=== PATIENT | female | born 1960 | race Caucasian/White ===

== ENCOUNTER 2019-12-22 09:52 | Outpatient (CLI) | payer OTHER, SELFPAY ==
[2019-12-22 11:02] LABS: Vitamin D 25 Hydroxy 61.5 ng/mL
== END 2019-12-22 09:53 | disposition home or self-care (01) ==
PROVIDERS: Visit Provider Obstetrics & Gynecology Gynecology
DX: E55.9 Vitamin D deficiency, unspecified (principal)
CPT/HCPCS: 36415; 82306

== ENCOUNTER 2021-12-28 09:33 | Outpatient (CLI) | payer OTHER, SELFPAY ==
[2021-12-28 10:49] LABS: Vitamin D 25 Hydroxy 71.1 ng/mL
== END 2021-12-28 09:34 | disposition home or self-care (01) ==
LOC: ANHLAB 09:35
PROVIDERS: Visit Provider Nurse Practitioner
DX: E55.9 Vitamin D deficiency, unspecified (principal)
CPT/HCPCS: 36415; 82306

== ENCOUNTER 2022-08-15 08:39 | Outpatient (CLI) | payer OTHER, SELFPAY ==
[2022-08-15 10:21] LABS: Vitamin D 25 Hydroxy 50.6 ng/mL
== END 2022-08-15 08:40 | disposition home or self-care (01) ==
PROVIDERS: Visit Provider Obstetrics & Gynecology Gynecology
DX: E55.9 Vitamin D deficiency, unspecified (principal)
CPT/HCPCS: 36415; 82306

== ENCOUNTER 2023-09-06 09:26 | Outpatient (CLI) | payer OTHER, SELFPAY ==
[2023-09-10 21:08] LABS: Vitamin D 25 Hydroxy 45 ng/mL (30-100)
== END 2023-09-06 09:27 | disposition home or self-care (01) ==
PROVIDERS: Visit Provider Nurse Practitioner
DX: E55.9 Vitamin D deficiency, unspecified (principal)
CPT/HCPCS: 36415; 82306

== ENCOUNTER 2024-09-08 11:29 | Outpatient (CLI) | payer OTHER, SELFPAY ==
--- OUTSIDE RECORDS SUMMARY | 2024-09-08 12:33 | XMS_ITS | Encounter Summary ---
Author Organization [facility] Address [address] [place] [address] Phone Care Team Providers Care [employer] In[employer] Name Role Phone Topher Seaman MD Primary Care Provider [phone] Delgado Goodrich MD Primary Care Provider [phone] Topher Seaman MD Primary Care Provider [phone] Delgado Goodrich MD Primary Care Provider [phone] Dennys Eller MD Unavailable [phone] Юлия Ruiz MD Unavailable [phone] Reason for Visit * Reason Onset Date Comments PROVIDER & SCHEDULE UPDATE 10/21/2018 Encounter Details Date Type Department Care Team (Late st Contact Info) Description 10/21/2018 Telephone [facility] Oncology [address] [place] [address] Ruma Garcia [facility] PROVIDER & SCHEDULE UPDATE Social History Tobacco Use Types Packs/Day Years Used Date Smoking Tobacco: Never Smokeless Tobacco: Never Comments Unknown Sex and Gender Information Value Date Recorded Sex Assigned at Not on file Legal Sex Female 6:57 PM [employer] Gender Identity Not on file Sexual Orientation Not on file documented as of this encounter Plan of Treatment Not on file documented as of this encounter Visit Diagnoses Not on filedocumented in this encounter Additional Health Concerns Infection Onset Date Last Indicated Resolved Time COVID: Suspected 03/05/2024 03/05/2024 03/05/2024 8:32 AM CDT COVID19 03/05/2024 03/05/2024 03/15/2024 3:06 AM CDT COVID: Recovered Comment:Added based on recent COVID infection. 03/15/2024 04/08/2024 06/13/2024 3:05 AM C DT documented as of this encounter Care Teams [employer] In[employer] Relationship Specialty Start Date End Date Topher Seaman MD [address] [place] [address] PCP - General 09/29/16 04/20/19 [place] [address] [place] [id number] PCP - General Internal Medicine 04/21/19 04/27/19 Topher Seaman MD [address] [place] [address] PCP - General 04/28/19 05/11/19 Delgado Goodrich MD [address] [place] [address] PCP - General Internal Medicine 05/12/19 [place] [address] [place] [id number] Referring Physician Obstetrics and Gynecology 01/02/20 [place] [address] [place] [id number] Surgeon Surgical Oncology 01/02/20 documented as of this encounter
--- OUTSIDE RECORDS SUMMARY | 2024-09-08 12:33 | XMS_ITS | Referral Summary ---
Author Organization [facility] Address [address] [place] [address] Care Team Providers Care Reconnaissance Man Name Role Phone Delgado Goodrich MD Primary Care Provider [phone] Dennys Eller MD Unavailable [phone] Юлия Ruiz MD Unavailable [phone] Encounters Date Type Department Care Team Description 07/23/2024 Telephone [facility] [address] [place] [address] Delgado Goodrich MD medication 07/22/2024 10:45 AM TRANSPORTATION TECHNICIAN Ancillary Procedure [facility] [address] [place] [address] RUQ pain 07/22/2024 9:45 AM TRANSPORTATION TECHNICIAN [facility] [address] [place] [address] Delgado Goodrich MD Need for immunization against influenza (Primary Dx); RUQ pain; Obstructive sleep apnea syndrome; Persistent hypersomnia; Right upper quadrant abdominal pain; Mixed hyperlipidemia; Hypertension, essential; Recurrent major depressive disorder, in full remission (CMS/HCC) (HCC) 07/15/2024 8:40 AM TRANSPORTATION TECHNICIAN Lab [facility] [address] [place] [address] Encounter for health maintenance examination from Last 3 Months Allergies No known active allergies Medications b complex vitamins capsuleIndications :Stop 5 days before surgery Take 1 capsule by mouth daily Active venlafaxine XR (EFFEXOR-XR) 75 mg 24 hr capsule Take by mouth daily 2 01/04/20 19 Active aspirin 81 mg enteric coated tablet Take 1 tablet (81 mg total) by mouth daily Active calcium carbonate (TUMS) 500 mg calcium (200 mg of elemental calcium) chewable tablet Take 2 tablet/chew tab (1,000 mg total) by mouth nightly Active ergocalciferol (VITAMIN D) 50,000 unit capsule Take 1 capsule (50,000 Units total) by mouth once a week Per TRANSLATOR AND INTERPRETER Active omeprazole (PriLOSEC) 20 mg capsule TAKE 2 CAPSULES(40 MG) BY MOUTH DAILY 180 capsule 1 01/01/20 24 Active amLODIPine-benazep riL (LOTREL) 10-40 mg per capsule TAKE 1 CAPSULE BY MOUTH EVERY DAY 90 capsule 1 01/10/20 24 Active solriamfetoL (Sunosi) 75 mg tablet Take 1 tablet (75 mg total) by mouth daily 30 tablet 5 04/22/20 24 Active Additional Information Patient not taking.Reported on 07/22/2024 modafiniL (PROVIGIL) 200 mg tablet Take 1 tablet (200 mg total) by mouth daily 30 tablet 5 05/01/20 24 025 Active atorvastatin (LIPITOR) 20 mg tabletIndications: Hyperlipidemia, unspecified hyperlipidemia type Take 1 tablet (20 mg total) by mouth daily 30 tablet 4 07/23/20 24 025 Active Active Problems Problem Noted Date Diagnosed Date Mixed hyperlipidemia 08/10/2024 Assessment & Plan (08/10/2024 3:19 PM TRANSPORTATION TECHNICIAN): Patient is on atorvastatin 10 mg daily will continue present therapy. Continue to monitor lipid profile Component Latest Ref Rng 07/15/2024. Cholesterol 30 - 199 mg/dL 204 (H) Triglycerides <=149 mg/dL 218 (H) HDL Cholesterol >=40 mg/dL 43 LDL Cholesterol Calc <=129 mg/dL 123 Non-HDL Cholesterol mg/dL 161 Chol/HDL ratio 5 Legend: (H) High Persistent hypersomnia 08/10/2024 Assessment & Plan (08/10/2024 3:17 PM TRANSPORTATION TECHNICIAN): Patient is on medication Provigil she is managed by sleep specialists [facility] Recurrent major depressive d isorder, in full remission ([facility]) 01/18/2024 Assessment & Plan (08/10/2024 3:22 PM TRANSPORTATION TECHNICIAN): Patient's mood is stable depression and full remission continue venlafaxine. Assessment & Plan (01/18/2024 11:59 AM CDT): Patient is excellent with medication venlafaxine 75 mg daily Dental abscess 06/09/2023 Assessment & Plan (07/21/2023 1:30 PM TRANSPORTATION TECHNICIAN): Patient has completed antibiotics dental problem has resolved Assessment & Plan (06/09/2023 3:31 PM CDT): Patient has not been feeling well has some facial pain start dentist was determined half a dental abscess. He is now on Augmentin and she is 80% improved she is a follow-up dental appointment this week. Did go to urgent care facility because of not feeling well in congestion and facial pain chest x-ray was negative for pneumonia. I am going to postpone patient's flu shot by least 2 weeks. Personal history of COVID-19 05/16/2022 Assessment & Plan (05/16/2022 11:24 AM CDT): Patient had COVID 1st week of April 2022. She had full recovery at this time she is advised she does not need a COVID vaccine least 2022. In 6 months maybe a different set rules regarding COVID vaccines. Sleep apnea 05/09/2019 Assessment & Plan (08/10/2024 3:16 PM TRANSPORTATION TECHNICIAN): Patient continues under care sleep Clinic she also has a diagnosis of persistent hypersomnia uses CPAP machine and takes the medicine Provigil under the directions sleep especially Assessment & Plan (01/18/2024 12:04 PM CDT): Patient's last sleep study was 2018 she has a CPAP machine this 5 years old. Patient is describing a change in sleep pattern with respect to yarsanism of energy. Refer back to sleep Clinic. Assessment & Plan (05/20/2021 5:35 PM CDT): Patient uses in benefits from CPAP machine Assessment & Plan (07/22/2019 5:07 PM TRANSPORTATION TECHNICIAN): Patient's sleep study return moderate sleep apnea however severe when in supine position. Patient's advised utilize all titration CPAP machine is a 1st choice. Assessment & Plan (05/09/2019 5:34 PM CDT): Patient is having non restored to sleep she has witnessed apnea. Patient has daytime fatigue. Patient's at that time she had a recent gallbladder surgery was evaluated by anesthesia at [facility] based on their evaluation screening 2 she was advised further testing for sleep apnea.. Patient's health worker Sleepiness Scale score was 12 this was taking here in office. Hypertension, essential 05/09/2019 Assessment & Plan (08/10/2024 3:19 PM TRANSPORTATION TECHNICIAN): Pressure at goal 98/54 visit for 07/22/2024 patient feels well with the present blood pressure. Will continue Lotrel 10/40. Assessment & Plan (01/18/2024 12:01 PM CDT): Hypertension well controlled patient is tolerating medications no symptoms referable to hypertension. Medication Lotrel 10 40/amlodipine/benazepril 1 tablet daily no change in therapy Assessment & Plan (07/21/2023 1:29 PM TRANSPORTATION TECHNICIAN): Blood pressure remains well controlled patient is tolerating medications Assessment & Plan (06/09/2023 3:30 PM CDT): Blood pressure well controlled patient tolerating medications. Assessment & Plan (11/14/2022 5:30 PM CDT): Blood pressure well controlled patient is tolerating medications no change in therapy Assessment & Plan (05/16/2022 11:25 AM CDT): Hypertension very well controlled patient is tolerating medications no change in therapy Assessment & Plan (12/06/2021 1:37 PM CDT): Hypertension well controlled patient is tolerating medications no change in therapy. Assessment & Plan (05/20/2021 5:34 PM CDT): Blood pressure is well controlled patient is tolerating medications. BMP is good lipid profile reviewed slight elevations nothing of any great extent. Patient works in physical [employer]. Assessment & Plan (11/13/2020 5:21 PM CDT): Blood pressure continues to be well controlled patient is tolerating present medications no change in therapy. Assessment & Plan (05/07/2020 3:30 PM CDT): Blood continues to be well controlled on present medication patient is tolerating medications is no change in therapy. Assessment & Plan (10/31/2019 9:53 AM CDT): Hypertension very well controlled patient is tolerating medications. No symptoms referable to her her blood pressure cardiac exam is neck. Will continue present medication. Assessment & Plan (07/22/2019 4:58 PM TRANSPORTATION TECHNICIAN): Hypertension remains reasonable control no change in therapy no symptoms referable to hypertension. Assessment & Plan (05/09/2019 4:28 PM CDT): Blood pressure is well controlled on the medications Lotrel 10-4 1 tablet daily. Is tolerating medicines and has no symptoms referable to hypertension. No change in therapy at this time. History of left mastectomy 05/09/2019 Assessment & Plan (05/09/2019 4:53 PM CDT): Left mastectomy secondary to breast cancer October 2016 Right upper quadrant abdominal pain 03/25/2019 Assessment & Plan (08/10/2024 3:18 PM TRANSPORTATION TECHNICIAN): Patient is experiencing intermittent right upper quadrant pain pain is mild no nausea no vomiting. Patient is advised if this continues will get amylase lipase level as well as possible ultrasound abdomen she is comfortable at this time no distress. Dictation for 07/22/2024 office visit History of breast cancer 02/10/2019 Encounter for health maintenance examination in adult 12/27/2018 Assessment & Plan (01/18/2024 11:58 AM CDT): History and physical completed patient's health risk assessment health maintenance reviewed in addressed. Immunizations current with the exception of RSV which she is advised of. Patient has a well-woman exam external to the [facility] Care system. No new health problems since her last visit. Assessment & Plan (11/14/2022 5:29 PM CDT): History and physical completed patient's health risk assessment health maintenance reviewed in addressed. Patient is doing well Oncology note reviewed patient is 6 years out since diagnosis of breast cancer. She had her 1st injection of shingles vaccine September she is scheduled for the 2nd 1 in a few weeks. Assessment & Plan (05/20/2021 5:33 PM CDT): History and physical completed patient's health risk assessment health maintenance reviewed in addressed. She recent had a mammogram she will be getting the biopsy next week upper right breast she has a cancer survivor. Findings on the mammogram is is amount of over a interpretation /overread.. Patient has a well-woman exam in August Assessment & Plan (05/07/2020 3:29 PM CDT): History and physical completed health risk assessment health maintenance reviewed in addressed. Patient had a flu shot through work April 27, 2020. Patient continues to follow-up with her oncologist regarding her breast cancer of management. Patient's well-woman exam in August 2020. The well-woman exam is with a physician outside the [facility] system therefore does not show up in the electronic medical record. Assessment & Plan (05/09/2019 4:27 PM CDT): This patient is new to me her previous primary care physician retired patient's health risk assessment health maintenance addressed this visit. Patient has several health problems history of breast cancer and surgery was 2016 she is still in the care of [facility]. Patient describes sleep apnea please see assessment and plans. History of hypertension history of generalized anxiety and history of B12 deficiency. 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 Assessment & Plan (12/06/2021 1:37 PM CDT): Anxiety well controlled with present medications no change in therapy Assessment & Plan (11/13/2020 5:22 PM CDT): Patient's mood and anxiety depression is well controlled stable no change in therapy Assessment & Plan (05/09/2019 4:24 PM CDT): Patient's history of generalized anxiety Effexor 75 mg 1 tablet daily has been effective will continue present dosage Malignant neoplasm of breast in female, estrogen receptor positive 10/29/2018 Overview (12/30/2018): Added automatically from request for surgery [id number] Malignant neoplasm of breast in female, estrogen receptor negative 06/20/2018 Increased frequency of urination 12/15/2016 History of left mastectomy 11/21/2016 Mass of breast 10/04/2016 Resolved Problems Problem Noted Date Diagnosed Date Resolved Date Pain of left femur 07/21/2019 Assessment & Plan (10/31/2019 9:54 AM CDT): Celebrex is working very effectively and controlling her hip and leg pain he is now using on a p.r.n. basis. Assessment & Plan (07/22/2019 4:58 PM TRANSPORTATION TECHNICIAN): Patient's pain over left hip and anterior femur started June 23. Precise injury patient has been going to chiropractor initially she thought was helping her at this time she is not convinced she is getting any significant benefit.. His pain is mainly over the anterior sometimes a burn sensation. No other changes. No back pain pain is not necessary reproducible on palpating over her thigh or hip.. Patient's family is worried because she is 2 years out from breast cancer this is a sign of metastasis. X-ray of left femur is negative. Patient started on Celebrex 200 mg twice a day 1 month supply 1 refill progress report in next few weeks. Fails will refer to Orthopedics. Status post laparoscopic cholecystectomy 05/09/2019 12/06/2021 Assessment & Plan (05/09/2019 4:22 PM CDT): Patient seen on 05/02/2019 for new patient visit. He successful had a cholecystectomy on 04/28/2019 she still under care of her surgeon. For this particular problem. B12 deficiency 05/09/2019 10/31/2019 Assessment & Plan (05/09/2019 4:27 PM CDT): History of B12 deficiency will recheck her level today Gastroesophageal reflux dise ase without esophagitis 05/09/2019 12/06/2021 Assessment & Plan (10/31/2019 9:54 AM CDT): Patient using omeprazole on a p.r.n. basis sometimes 1 tablet daily sometimes 2 per day. No change in therapy Assessment & Plan (05/09/2019 4:54 PM CDT): GERD symptoms are controlled with the use of omeprazole 20 mg twice daily. Gallstones 04/01/2019 10/31/2019 Overview (04/01/2019): Added automatically from request for surgery [id number] Sebaceous cyst 03/25/2019 10/31/2019 Assessment & Plan (03/25/2019 2:28 PM CDT): The procedure of minor room excision of mid chest epidermoid cyst was explained to the patient to which she agrees. The culture report was reviewed with infectious disease OPEN HEARTH FURNACE OPERATOR HELPER who states it is most likely a contaminant. Patient has been improving with keflex. Will also obtain a RUQ ultrasound for suspected gallstones. Epidermoid cyst of skin of chest 03/25/2019 10/31/2019 Overview (03/25/2019): Added automatically from request for surgery [id number] Malignant neoplasm of breast in female, estrogen receptor positive 10/29/2018 12/27/2018 Overview (10/29/2018): Added automatically from request for surgery [id number] Immunizations Name Administration Dates Next Due Influenza, Quadrivalent, Spl it, Preservative Free, Intramuscular 07/20/2023,05/16/2022,05/20/2021,04/13 Influenza, Trivalent, Preser vative Free, Intramuscular 07/22/2024 Influenza, Unspecified 04/27/2020 Pfizer SARS-CoV-2 Monovalent Vaccination (12+ Yrs) PURPLE 10/22/2020,10/01/2020 Tdap 05/02/2019 ZOSTER Recombinant 01/23/2023,09/25/2022 Social History Tobacco Use Types Packs/Day Years Used Date Smoking Tobacco: Never Smokeless Tobacco: Never Tobacco Cessation:Counseling Given: Not Answered Alcohol Use Standard Drinks/Week Comments Not Currently 0 (1 standard drink = 0.6 oz pur e alcohol) PHQ-2 Answer Date Recorded PHQ-2 Total Score (If total score is 3 or more points, staff should administer the PHQ-9) 0 01/18/2024 Comments No Sex and Gender Information Value Date Recorded Sex Assigned at Not on file Legal Sex Female 6:57 PM TRANSPORTATION TECHNICIAN Gender Identity Not on file Sexual Orientation Not on file Occupation Industry Job Start Date Job End Date Not on file Not on file Not on file Not on file Last Filed Vital Signs Vital Sign Reading Time Taken Comments Blood Pressure 98/54 07/22/2024 9:50 AM TRANSPORTATION TECHNICIAN Pulse 91 07/22/2024 9:50 AM TRANSPORTATION TECHNICIAN Temperature 36.9 ??C (98.4 ??F) 07/22/2024 9:50 AM CS T Respiratory Rate 16 07/22/2024 9:50 AM TRANSPORTATION TECHNICIAN Oxygen Saturation 98% 07/22/2024 9:50 AM TRANSPORTATION TECHNICIAN Inhaled Oxygen Concentration - - Weight 84.6 kg (186 lb 6.4 oz) 07/22/2024 9:50 A M TRANSPORTATION TECHNICIAN Height 160 cm (5' 3 ) 07/22/2024 9:50 AM TRANSPORTATION TECHNICIAN Body Mass Index 33.02 07/22/2024 9:50 AM TRANSPORTATION TECHNICIAN Plan of Treatment Not on file Procedures Procedure Name Priority Date/Time Associated Diagnosis Comments RUQ Schedule Routine, Read Routine (OP Routine) 07/22/2024 10:55 AM TRANSPORTATION TECHNICIAN RUQ pain EGFR Routine 07/15/2024 8:39 AM TRANSPORTATION TECHNICIAN Encounter for health maintenance examination LIPID PANEL Routine 07/15/2024 8:39 AM TRANSPORTATION TECHNICIAN Encounter for health maintenance examination RENAL FUNCTION PANEL Routine 07/15/2024 8:39 AM TRANSPORTATION TECHNICIAN Encounter for health maintenance examination SCREENING MAMMOGRAM RIGHT W EBENEZER UNILATERAL ONLY Schedule Routine, Read Routine (OP Routine) 09/24/2023 10:31 AM TRANSPORTATION TECHNICIAN History of breast cancer HEPATITIS C ANTIBODY Routine 05/02/2019 10:45 AM CDT Encounter for hepatitis C screening test for low risk patient COLONOSCOPY 02/03/2019 10:06 AM CDT from Last 3 Months or Most Recently Relevant to Health Maintenance Results * US RUQ (07/22/2024 10:55 AM TRANSPORTATION TECHNICIAN) Anatomical Region Laterality Modality Abdomen N/A Ultrasound 07/28/2024 8:29 AM TRANSPORTATION TECHNICIAN Narrative 07/28/2024 8:31 AM TRANSPORTATION TECHNICIAN EXAM DESCRIPTION: US RUQ REASON FOR STUDY: pain ?? RUQ pain x 6 months ??Hx of breast ca 2017 ?? TECHNIQUE: Ultrasound of the right upper quadrant of the abdomen was performed with grayscale and color doppler interrogation. COMPARISON: Ultrasound 03/28/2019 FINDINGS: LIVER: ??Increased echogenicity. ??This compromises evaluation for subtle masses although no mass is seen on the obtained images. ?The main portal vein is patent with hepatopetal flow. GALLBLADDER: Absent. BILIARY: The common duct measures 8.1 mm diameter. PANCREAS: Visualized portions of the pancreas are within normal limits. Portions of the pancreatic body and tail are obscured due to bowel gas. RIGHT KIDNEY: ??No hydronephrosis. ?? OTHER: ??No other significant findings. IMPRESSION: No acute findings. Previous cholecystectomy. Diffuse hepatic steatosis. THIS IS AN ELECTRONICALLY VERIFIED FINAL REPORT 07/28/2024 8:31 AM - Electronically signed by ??Jovi Melton M.D., JR: D: ??07/28/2024 8:31 AM T: ??07/28/2024 8:31 AM Report ID: [id number] Reading Location: ??[id number] Procedure Note Jovi Melton MD - 07/28/2024 EXAM DESCRIPTION: US RUQ REASON FOR STUDY: pain RUQ pain x 6 months Hx of breast ca 2017 TECHNIQUE: Ultrasound of the right upper quadrant of the abdomen wasperformed with grayscale and color doppler interrogation. COMPARISON: Ultrasound 03/28/2019 FINDINGS: LIVER: Increased echogenicity. This compromises evaluation for subtlemasses although no mass is seen on the obtained images. The main portal veinis patent with hepatopetal flow. GALLBLADDER: Absent. BILIARY: The common duct measures 8.1 mm diameter. PANCREAS: Visualized portions of the pancreas are within normal limits. Portions of the pancreatic body and tail are obscured due to bowel gas. RIGHT KIDNEY: No hydronephrosis. OTHER: No other significant findings. IMPRESSION: No acute findings. Previous cholecystectomy. Diffuse hepatic steatosis. THIS IS AN ELECTRONICALLY VERIFIED FINAL REPORT 07/28/2024 8:31 AM - Electronically signed by Jovi Melton M.D. JR: Report ID: [id number] Reading Location: [id number] us Delgado Goodrich MD IM US PROCEDURES Final Re sult * eGFR (07/15/2024 8:39 AM TRANSPORTATION TECHNICIAN) eGFR 89 >=60 mL/min/1. 73 m2 Comment: Interpretive Data Reference Interval Normal ?>/= 90 mL/min/1.73m2 Mildly decreased* ? 60 - 89 mL/min/1.73m2 Mildly to moderately decreased ?45 - 59 mL/min/1.73m2 Moderately to severely decreased ??30 - 44 mL/min/1.73m2 Severely decreased ?15 - 29 mL/min/1.73m2 Kidney Failure ?< 15 ??mL/min/1.73m2 *Relative to young adult level Estimated glomerular filtration rate is determined by the 2020 CKD-EPI equation recommended by the National Kidney Foundation (A Unifying Approach to GFR Estimation: Recommendations of the NKF-ASK Task Force on Reassessing the Inclusion of Race in Diagnosing Kidney Disease, JASN 2020). The CKD-EPI equation should not be used for patients with unstable renal function and has not been validated in children and those over 70. Current interpretive data was last reviewed 2021. Testing performed by: [address] [address] Blood 07/15/2024 8:39 AM TRANSPORTATION TECHNICIAN 07/15/2024 1:06 PM TRANSPORTATION TECHNICIAN Delgado Goodrich MD LAB BLOOD ORDERABLES Final Result [facility] [address] Department [place] [address] * Renal function panel (07/15/2024 8:39 AM TRANSPORTATION TECHNICIAN) Sodium 139 135 - 145 mmol/L Comment:Testing performed by : [address] [address] Potassium, pl 4.2 3.3 - 4.9 mmol/L [facility] Comment:Testing performed by : [address] [address] Chloride 101 97 - 110 mmol/L [facility] Comment:Testing performed by : [address], [address] CO2 26 22 - 32 mmol/L [facility] Comment:Testing performed by : [address] [address] Anion gap 12 2 - 15 mmol/L [facility] Comment:Testing performed by : [facility], [address] [place] [address]., [address] BUN 17 6 - 25 mg/dL [facility] Comment:Testing performed by : [facility], [address] [place] [address]., [address] Creatinine 0.75 0.60 - 1.10 mg/dL [facility] Comment:Testing performed by : [facility], [address] [place] [address]., [address] Glucose 94 70 - 199 mg/dL [facility] Comment: Interpretive Data Fasting glucose >/= 126 mg/dl is diagnostic for diabetes. ?? Fasting is defined as no caloric intake for at least 8 hours. Fasting glucose between 100 mg/dl to 125 mg/dl is diagnostic of prediabetes. In a patient with classic symptoms of hyperglycemia or hyperglycemic crisis, a random glucose >/= 200 mg/dl is diagnostic for diabetes. In the absence of unequivocal hyperglycemia, results should be confirmed by repeat testing. The classification and Diagnosis of Diabetes Diabetes Care 2021; 46: S19-S40. Current interpretive data was last revised 2022. Testing performed by: [facility], [address] [place] [address]., [address] Calcium 9.4 8.5 - 10.3 mg/dL [facility] Comment:Testing performed by : [facility], [address] [place] [address]., [address] Phosphorus, pl 3.1 2.3 - 4.5 mg/dL [facility] Comment:Testing performed by : [address] [address] Albumin 4.2 3.5 - 5.0 g/dL [facility] Comment:Testing performed by : [address] [address] Blood 07/15/2024 8:39 AM TRANSPORTATION TECHNICIAN 07/15/2024 12:55 PM TRANSPORTATION TECHNICIAN Delgado Goodrich MD LAB BLOOD ORDERABLES Final Result [place] [address] [address] Department [place] [address] * (ABNORMAL) Lipid panel (07/15/2024 8:39 AM TRANSPORTATION TECHNICIAN) [facility] Cholesterol 204(H) 30 - 199 mg/dL Comment: Interpretive Data Ages < or = 19 years ??Acceptable: ? <170 mg/dL ??Borderline high: ??170-199 mg/dL ??High: ? >or= 200 mg/dL Ages > or = 20 years ??Desirable: ?<200 mg/dL ??Borderline high: ??200-239 mg/dL ??High: ? >or= 240 mg/dL Literature References: 1. Expert Panel on Integrated Guidelines for Cardiovascular Health and Risk Reduction in Children and Adolescents. Pediatrics 2011;128:S213 2. NCEP Expert Panel. Circulation 2004;110:227 Current Interpretive Data was last revised on 2018. Testing performed by: [facility], [address] [place] [address]., [address] Triglycerides 218(H) <=149 mg/dL [facility] Comment: Interpretive Data Ages < or = 9 years ??Acceptable: ? <75 mg/dL ??Borderline high: ??75-99 mg/dL ??High: ? >or= 100 mg/dL Ages 10 to 20 years ??Acceptable: ? <90 mg/dL ??Borderline high: ??90-129 mg/dL ??High: ? >or= 130 mg/dL Ages > or = 20 years ??Desirable: ?<150 mg/dL ??Borderline high: ??150-199 mg/dL ??High: ? 200-499 mg/dL ?Very high: ?? >or= 499 mg/dL Literature References: 1. Expert Panel on Integrated Guidelines for Cardiovascular Health and Risk Reduction in Children and Adolescents. Pediatrics 2011;128:S213 2. NCEP Expert Panel. Circulation 2004;110:227 Current Interpretive Data was last revised on 2018. Testing performed by: [facility], [address] [place] [address]., [address] HDL 43 >=40 mg/dL [facility]O Comment: Interpretive Data Ages < or = 19 years ??Acceptable: ? >45 mg/dL ??Borderline low: ?? 40-45 mg/dL ??Low: ? <40 mg/dL Ages > or = 20 years ??Desirable: ?>or= 60 mg/dL ??Low: ? <40 mg/dL Literature References: 1. Expert Panel on Integrated Guidelines for Cardiovascular Health and Risk Reduction in Children and Adolescents. Pediatrics 2011;128:S213 2. NCEP Expert Panel. Circulation 2004;110:227 Current Interpretive Data was last revised on 2018. Testing performed by: [facility], [address] [place] [address]., [address] LDL, calculated 123 <=129 mg/dL AM[facility]O Comment: Interpretive Data Ages < or = 19 years ??Acceptable: ? <110 mg/dL ??Borderline high: ??110-129 mg/dL ??High: ?>or= 130 mg/dL Ages > or = 20 years ??Optimal: ? <100 mg/dL ??Near optimal: ?100-129 mg/dL ??Borderline high: ?? 130-159 mg/dL ??High: ?>160 mg/dL Calculated using the Maciej LDL-C estimating equation. This equation was implemented on 2024. Prior to this date LDL-C was estimated using the Friedewald equation. Literature References: 1. Expert Panel on Integrated Guidelines for Cardiovascular Health and Risk Reduction in Children and Adolescents. Pediatrics 2011;128:S213 2. NCEP Expert Panel. Circulation 2004;110:227 3. Maciej Powell et al. JOSE RAFAEL Cardiol. 2020 December 11;5(5):540-548. doi: 10.1001/jamacardio.2020.0013 Current Interpretive Data was last revised on 2024. Testing performed by: [address] [address] Non-HDL Cholesterol 161 mg/dL [facility] Comment: Interpretive Data Ages < or = 19 years ??Acceptable: ?<120 mg/dL ??Borderline high: ??120-144 mg/dL ??High: ?>145 mg/dL Ages > or = 20 years ??When triglycerides are >200 mg/dL, Non-HDL cholesterol is a secondary target of ? therapy with treatment goals that are 30 mg/dL greater than the LDL cholesterol target. ? Literature References: 1. Expert Panel on Integrated Guidelines for Cardiovascular Health and Risk Reduction in Children and Adolescents. Pediatrics 2011;128:S213 2. NCEP Expert Panel. Circulation 2004;110:227 Current Interpretive Data was last revised on 2018. Testing performed by: [address] [address] Chol/HDL ratio 5 [facility] Comment:Testing performed by : [address] [address] Blood 07/15/2024 8:39 AM TRANSPORTATION TECHNICIAN 07/15/2024 12:55 PM TRANSPORTATION TECHNICIAN Delgado Goodrich MD LAB BLOOD ORDERABLES Final Result Performing Organization Address City/State/[facility] Co de Phone Number [facility] [address] Department [place] [address] * Screening Mammogram Right W [place] Unilateral Only (09/24/2023 10:31 AM TRANSPORTATION TECHNICIAN) Anatomical Region Laterality Modality Breast Right Mammography Narrative 09/24/2023 12:54 PM TRANSPORTATION TECHNICIAN Mammogram Technique: Right Breast Digital Breast Tomosynthesis, Unilateral C-view 2D Screening mammogram. ??Views obtained: ??right craniocaudal and right mediolateral oblique. ??Computer Aided Detection was performed. Mammogram Findings: The present examination has been compared to prior imaging studies performed at [facility] on 04/27/2021, 05/17/2021 and 09/18/2022. There are scattered areas of fibroglandular density. There is no suspicious abnormality in the right breast. Patient status post contralateral mastectomy for personal history of breast cancer. Impression: There is no mammographic evidence of malignancy. Annual screening mammography is recommended. OVERALL FINAL ASSESSMENT: BI-RADS CATEGORY 1: ??Negative. Procedure Note Monika Pratt MD - 09/24/2023 Mammogram Technique: Right Breast Digital Breast Tomosynthesis, Unilateral C-view 2DScreening mammogram. Views obtained: right craniocaudal and right mediolateral oblique. Computer Aided Detection was performed. Mammogram Findings: The present examination has been compared to prior imaging studies performed at [facility] on 04/27/2021, 05/17/2021 and 09/18/2022. There are scattered areas of fibroglandular density. There is no suspicious abnormality in the right breast. Patient status post contralateral mastectomy for personal history ofbreast cancer. Impression: There is no mammographic evidence of malignancy. Annual screening mammography is recommended. OVERALL FINAL ASSESSMENT: BI-RADS CATEGORY 1: Negative. us Nickie Hinkle NP IMG MAMMO PROCEDURES Fin al Result * Hepatitis C antibody (05/02/2019 10:45 AM CDT) Hep C Ab Negative Negative [facility]O KEITH (ANAYELI) Comment:Testing performed by : [facility], [address] [place] [address]., [id number] Blood specimen (specimen) 05/02/2019 10:45 AM CDT 05/02/2019 1:36 PM CDT Narrative AMADO KEITH (ANAYELI) - 05/02/2019 2:42 PM CDT Today (05-02-19). us Delgado Goodrich MD LAB MICROBIOLOGY - GENERAL ORDERABLES Final Result AMADO KEITH (ANAYELI) [address] [place] [address] * COLONOSCOPY (02/03/2019 10:06 AM CDT) Anatomical Region Laterality Modality Other Narrative Procedure Note Shay Bryan MD PhD - 02/03/2019 10:06 AM CDT ENDOSCOPY LAB Patient Name: Hilaria Russo Procedure Date: 02/03/2019 10:06 AM Date of : 1960 Admit Type: Outpatient Age: 58 Gender: Female Attending MD: Shay Bryan MD,PHD Room: [place] [address] Note Status: Finalized Procedure: Colonoscopy Indications: Screening for colorectal malignant neoplasm, Last colonoscopy: 2010, history of iron deficiency andanemia and positive fecal occult blood Providers: Shay Bryan MD, PHD, Gopal Naik MD(Fellow) Referring MD: Leodan Dozier M.D. Medicines: Monitored Anesthesia Care Complications: No immediate complications. Estimated Blood Loss: Estimated blood loss: none. Procedure: Pre-Anesthesia Assessment: - Immediately prior to administration of medications,the patient was re-assessed for adequacy to receivesedatives. The benefits, risks and alternatives of the procedureand sedation were discussed and informed consent wasobtained. All questions were answered. Please refer to the signed informed consent document in the medical record. Thescope was passed under direct vision. The [id number] introduced through the anus and advanced to theterminal ileum. The colonoscopy was performed withoutdifficulty. The patient tolerated the procedure well. The qualityof the bowel preparation was good. The quality of thebowel preparation was evaluated using the BBPS ([place]wood Bowel Preparation Scale) with scores of: Right Colon = 3, Transverse Colon = 2 and Left Colon = 3. The total BBPS score equals 8. The bowel preparation used was SUPREP. Bowel prep was administered using a split dose. Findings: The perianal and digital rectal examinations were normal. The terminal ileum appeared normal. Multiple small and large-mouthed diverticula were found fromtransverse colon to sigmoid colon. Internal hemorrhoids were found during retroflexion. Impression: - The examined portion of the ileum was normal. - Diverticulosis from transverse colon to sigmoidcolon. - Internal hemorrhoids. Recommendation: - Repeat colonoscopy in 10 years for screeningpurposes. Attending Participation: I was present and participated during the entire procedure, including non-colin portions. Electronically signed by Shay Bryan MD. Shay Bryan MD, PHD 02/03/2019 10:39:44 AM Gopal Naik MD Number of Addenda: 0 Note Initiated On: 02/03/2019 10:06 AM Shay Bryan MD PhD ENDOSCOPY PROCEDURES Allison l Result from Last 3 Months or Most Recently Relevant to Health Maintenance Insurance [facility] [employer] [facility]O Address: [place] [address] [facility] H[facility]/PPO Address: [place] [address] [facility]O Address: [place] [address] Advance Directives For more information, please contact: [phone] * Full Code (Latest Code Status on File) Date Activated Date Inactivated Comments 02/03/2019 9:12 AM 02/03/2019 3:27 PM Care Teams Reconnaissance Man Relationship Specialty Start Date End Date Delgado Goodrich MD PCP - General Internal Medicine 05/12/19 Dennys Eller MD Referring Physician Obstetrics and Gynecology 01/02/20 Юлия Ruiz MD [address] [address] Surgeon Surgical Oncology 01/02/20
--- OUTSIDE RECORDS SUMMARY | 2024-09-08 12:33 | XMS_ITS | Encounter Summary ---
Author Organization [facility] Address [address] [place] [address] Phone Care Team Providers Care Engineering Consultant Name Role Phone Delgado Goodrich MD Primary Care Provider [phone] Dennys Eller MD Unavailable [phone] Юлия Ruiz MD Unavailable [phone] Encounter Details Date Type Department Care Team (Late st Contact Info) Description 12/26/2021 Telephone [facility] [address] [facility] [address] [place] [address] Agatha Henson, B.A. Social History Tobacco Use Types Packs/Day Years Used Date Smoking Tobacco: Never Smokeless Tobacco: Never Alcohol Use Standard Drinks/Week Comments Not Currently 0 (1 standard drink = 0.6 oz pur e alcohol) PHQ-2 Answer Date Recorded PHQ-2 Total Score (If total score is 3 or more points, staff should administer the PHQ-9) 0 12/06/2021 Comments No Sex and Gender Information Value Date Recorded Sex Assigned at Not on file Legal Sex Female 6:57 PM PUBLIC POLICY COORDINATOR Gender Identity Not on file Sexual Orientation Not on file Occupation Industry Job Start Date Job End Date Not on file Not on file Not on file Not on file documented as of this [...] documented as of this encounter Care Teams Engineering Consultant Relationship Specialty Start Date End Date Delgado Goodrich MD PCP - General Internal Medicine 05/12/19 Dennys Eller MD Referring Physician Obstetrics and Gynecology 01/02/20 Юлия Ruiz MD [address] [address] Surgeon Surgical Oncology 01/02/20 documented as of this encounter
--- OUTSIDE RECORDS SUMMARY | 2024-09-08 12:33 | XMS_ITS | Encounter Summary ---
Author Organization [facility] Address [address] [place] [address] Phone Care Team Providers Care Mobile Equipment Mechanic Name Role Phone Delgado Goodrich MD Primary Care Provider [phone] Dennys Eller MD Unavailable [phone] Юлия Ruiz MD Unavailable [phone] Encounter Details Date Type Department Care Team (Late st Contact Info) Description 2021 Telephone [facility] [address] [facility] [address] [place] [address] Agatha Henson, B.A. Social History [...] on file Legal Sex Female 6:57 PM SEASONAL CLERK Gender Identity Not on file Sexual Orientation [...] documented as of this encounter Care Teams Mobile Equipment Mechanic Relationship Specialty Start Date End Date Delgado Goodrich MD PCP - General Internal Medicine 05/12/19 Dennys Eller MD Referring Physician Obstetrics and Gynecology 01/02/20 Юлия Ruiz MD [address] [address] Surgeon Surgical Oncology 01/02/20 documented as of this encounter
--- OUTSIDE RECORDS SUMMARY | 2024-09-08 12:33 | XMS_ITS | Clinical Summary ---
Author Organization [facility] Address [address] [place] [address] Care Team Providers Care Retail And Restaurant Associate Name Role Phone Delgado Goodrich MD Primary Care Provider [phone] Dennys Eller MD Unavailable [phone] Юлия Ruiz MD Unavailable [phone] Allergies No known active allergies Medications b [...] total) by mouth once a week Per DITCHING MACHINE ENGINEER Active omeprazole (PriLOSEC) 20 mg capsule TAKE [...] 08/10/2024 Assessment & Plan (08/10/2024 3:19 PM DIVISION CHIEF): Patient is on atorvastatin 10 mg daily will continue present therapy. Continue to monitor lipid profile Component Latest Ref Rng 07/15/2024. Cholesterol 30 - 199 mg/dL 204 (H) Triglycerides <=149 mg/dL 218 (H) HDL Cholesterol >=40 mg/dL 43 LDL Cholesterol Calc <=129 mg/dL 123 Non-HDL Cholesterol mg/dL 161 Chol/HDL ratio 5 Legend: (H) High Persistent hypersomnia 08/10/2024 Assessment & Plan (08/10/2024 3:17 PM DIVISION CHIEF): Patient is on medication Provigil she is managed by sleep specialists [facility] Recurrent major depressive d isorder, in full remission ([facility]) 01/18/2024 Assessment & Plan (08/10/2024 3:22 PM DIVISION CHIEF): Patient's mood is stable depression and full remission continue venlafaxine. Assessment & Plan (01/18/2024 11:59 AM CDT): Patient is excellent with medication venlafaxine 75 mg daily Dental abscess 06/09/2023 Assessment & Plan (07/21/2023 1:30 PM DIVISION CHIEF): Patient has completed antibiotics dental problem has [...] 05/09/2019 Assessment & Plan (08/10/2024 3:16 PM DIVISION CHIEF): Patient continues under care sleep Clinic she also has a diagnosis of persistent hypersomnia uses CPAP machine and takes the medicine Provigil under the directions sleep especially Assessment & Plan (01/18/2024 12:04 PM CDT): Patient's last sleep study was 2018 she has a CPAP machine this 5 years old. Patient is describing a change in sleep pattern with respect to moravian of energy. Refer back to sleep Clinic. Assessment & Plan (05/20/2021 5:35 PM CDT): Patient uses in benefits from CPAP machine Assessment & Plan (07/22/2019 5:07 PM DIVISION CHIEF): Patient's sleep study return moderate sleep apnea however severe when in supine position. Patient's advised utilize all titration CPAP machine is a 1st choice. Assessment & Plan (05/09/2019 5:34 PM CDT): Patient is having non restored to sleep she has witnessed apnea. Patient has daytime fatigue. Patient's at that time she had a recent gallbladder surgery was evaluated by anesthesia at [facility] based on their evaluation screening 2 she was advised further testing for sleep apnea.. Patient's health worker Sleepiness Scale score was 12 this was taking here in office. Hypertension, essential 05/09/2019 Assessment & Plan (08/10/2024 3:19 PM DIVISION CHIEF): Pressure at goal 98/54 visit for 07/22/2024 patient feels well with the present blood pressure. Will continue Lotrel 10/40. Assessment & Plan (01/18/2024 12:01 PM CDT): Hypertension well controlled patient is tolerating medications no symptoms referable to hypertension. Medication Lotrel 10 40/amlodipine/benazepril 1 tablet daily no change in therapy Assessment & Plan (07/21/2023 1:29 PM DIVISION CHIEF): Blood pressure remains well controlled patient is [...] any great extent. 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 Assessment & Plan (11/13/2020 5:21 PM CDT): [...] medication. Assessment & Plan (07/22/2019 4:58 PM DIVISION CHIEF): Hypertension remains reasonable control no change in [...] 03/25/2019 Assessment & Plan (08/10/2024 3:18 PM DIVISION CHIEF): Patient is experiencing intermittent right upper quadrant [...] has a well-woman exam external to the [facility] Care system. No new health problems [...] exam is with a physician outside the [facility] system therefore does not show up in the electronic medical record. Assessment & Plan (05/09/2019 4:27 PM CDT): This patient is new to me her previous primary care physician retired patient's health risk assessment health maintenance addressed this visit. Patient has several health problems history of breast cancer and surgery was 2016 she is still in the care of [facility]. Patient describes sleep apnea please [...] (12/30/2018): Added automatically from request for surgery [id number] Malignant neoplasm of breast in female, estrogen receptor negative 06/20/2018 Increased frequency of urination 12/15/2016 History of left mastectomy 11/21/2016 Mass of breast 10/04/2016 Resolved Problems Problem Noted Date Diagnosed Date Resolved Date Pain of left femur 07/21/2019 1 Assessment & Plan (10/31/2019 9:54 AM CDT): Celebrex is working very effectively and controlling her hip and leg pain he is now using on a p.r.n. basis. Assessment & Plan (07/22/2019 4:58 PM DIVISION CHIEF): Patient's pain over left hip and anterior [...] (04/01/2019): Added automatically from request for surgery [id number] Sebaceous cyst 03/25/2019 10/31/2019 Assessment & Plan (03/25/2019 2:28 PM CDT): The procedure of minor room excision of mid chest epidermoid cyst was explained to the patient to which she agrees. The culture report was reviewed with infectious disease ERP ENGINEER who states it is most likely a contaminant. Patient has been improving with keflex. Will also obtain a RUQ ultrasound for suspected gallstones. Epidermoid cyst of skin of chest 03/25/2019 10/31/2019 Overview (03/25/2019): Added automatically from request for surgery [id number] Malignant neoplasm of breast in female, estrogen receptor positive 10/29/2018 12/27/2018 Overview (10/29/2018): Added automatically from request for surgery [id number] Encounters Date Type Department Care Team Description 07/23/2024 Telephone [facility] [address] [place] [address] Delgado Goodrich MD medication 07/22/2024 10:45 AM DIVISION CHIEF Ancillary Procedure [facility] [address] [place] [address] RUQ pain 07/22/2024 9:45 AM DIVISION CHIEF Office Visit [facility] [address] [place] [address] Delgado Goodrich MD Need for immunization against influenza (Primary Dx); RUQ pain; Obstructive sleep apnea syndrome; Persistent hypersomnia; Right upper quadrant abdominal pain; Mixed hyperlipidemia; Hypertension, essential; Recurrent major depressive disorder, in full remission (CMS/HCC) (HCC) 07/15/2024 8:40 AM DIVISION CHIEF Lab [facility] [address] [place] [address] Encounter for health maintenance examination from Last 3 Months Immunizations Name Administration Dates Next Due Influenza, Quadrivalent, Spl it, Preservative Free, Intramuscular 07/20/2023,05/16/2022,05/20/2021,04/13 Influenza, Trivalent, Preser vative Free, Intramuscular 07/22/2024 Influenza, Unspecified 04/27/2020 Pfizer SARS-CoV-2 Monovalent Vaccination (12+ Yrs) PURPLE 10/22/2020,10/01/2020 Tdap 05/02/2019 ZOSTER Recombinant 01/23/2023,09/25/2022 Surgical History Surgery Date Site/Laterality Comments MASTECTOMY SECTION ENDOMETRIAL ABLATION BREAST BIOPSY 05/25/2021 Right Medical History Medical History Date Comments Left Breast cancer (CMS/HCC) Anxiety and depression Obesity Hypertension Sleep apnea 05/09/2019 Family History Medical History Relation Name Comments Prostate cancer Father's Brother 1 Family history of malignant neoplasm of prostate - (Added by TW Conv) Prostate cancer Father's Brother 2 Family history of malignant neoplasm of prostate - (Added by TW Conv) Colon cancer Maternal Grandfather Colon c ancer - (Added by TW Conv)/Colon cancer - (Added by TW Conv) Prostate cancer Maternal Grandfather Fami ly history of malignant neoplasm of prostate - (Added by TW Conv)/Family history of malignant neoplasm of prostate - (Added by TW Conv) Colon cancer Mother's Sister 1 Colon canc er - (Added by TW Conv) Colon cancer Mother's Sister 2 Colon canc er - (Added by TW Conv) Relation Name Status Comments Father's Brother 1 Father's Brother 2 Maternal Grandfather Mother's Sister 1 Mother's Sister 2 Social History Tobacco Use Types Packs/Day Years [...] on file Legal Sex Female 6:57 PM DIVISION CHIEF Gender Identity Not on file Sexual Orientation Not on file Occupation Industry Job Start Date Job End Date Not on file Not on file Not on file Not on file Obstetrics History Last Filed Vital Signs Vital Sign Reading Time Taken Comments Blood Pressure 98/54 07/22/2024 9:50 AM DIVISION CHIEF Pulse 91 07/22/2024 9:50 AM DIVISION CHIEF Temperature 36.9 ??C (98.4 ??F) 07/22/2024 9:50 AM CS T Respiratory Rate 16 07/22/2024 9:50 AM DIVISION CHIEF Oxygen Saturation 98% 07/22/2024 9:50 AM DIVISION CHIEF Inhaled Oxygen Concentration - - Weight 84.6 kg (186 lb 6.4 oz) 07/22/2024 9:50 A M DIVISION CHIEF Height 160 cm (5' 3 ) 07/22/2024 9:50 AM DIVISION CHIEF Body Mass Index 33.02 07/22/2024 9:50 AM DIVISION CHIEF Plan of Treatment Health Maintenance Due Date Last Done Comments Cervical Cancer Screening 1960 Covid-19 Vaccine ( season) 2024 07/24/2023, 09/25/2022, 07/21/2021, Additional history exists Breast Cancer Screening-Mammogram 09/24/2024 09/24/2023, 09/18/2022, 04/27/2021, Additional history exists Depression Screening 01/17/2025 01/18/2024, 11/14/2022, 12/06/2021, Additional history exists Regular Well Visit/Exam 18-64 01/17/2025 01/18/2024, 11/14/2022, 05/20/2021, Additional history exists Colon Cancer Screening-Colonoscopy 02/03/2029 02/03/2019 DTaP/Tdap/Td Vaccine (2 - Td or Tdap) 05/02/2029 05/02/2019 Colon Cancer Screening-CT Colonography Discontinued 02/03/2019 Colon Cancer Screening-DNA Stool Discontinued 02/03/2019 Colon Cancer Screening-FIT Discontinued 02/03/2019 Colon Cancer Screening-Sigmoidoscopy Discontinued 02/03/2019 Hepatitis C Screening Completed 05/02/2019 Zoster Vaccine Completed 01/23/2023, 09/25/2022 Influenza Vaccine Completed 07/22/2024, , 05/16/2022, Additional history exists Hepatitis B Screening Discontinued Pneumococcal vaccine <65 Aged Out No longer eligible based on patient's age to complete this topic Procedures Procedure Name Priority Date/Time Associated Diagnosis Comments US RUQ Schedule Routine, Read Routine (OP Routine) 07/22/2024 10:55 AM DIVISION CHIEF RUQ pain EGFR Routine 07/15/2024 8:39 AM DIVISION CHIEF Encounter for health maintenance examination LIPID PANEL Routine 07/15/2024 8:39 AM DIVISION CHIEF Encounter for health maintenance examination RENAL FUNCTION PANEL Routine 07/15/2024 8:39 AM DIVISION CHIEF Encounter for health maintenance examination SCREENING MAMMOGRAM RIGHT W EBENEZER UNILATERAL ONLY Schedule Routine, Read Routine (OP Routine) 09/24/2023 10:31 AM DIVISION CHIEF History of breast cancer HEPATITIS C ANTIBODY Routine 05/02/2019 10:45 AM CDT Encounter for hepatitis C screening test for low risk patient COLONOSCOPY 02/03/2019 10:06 AM CDT from Last 3 Months or Most Recently Relevant to Health Maintenance Results * US RUQ (07/22/2024 10:55 AM DIVISION CHIEF) Anatomical Region Laterality Modality Abdomen N/A Ultrasound 07/28/2024 8:29 AM DIVISION CHIEF Narrative 07/28/2024 8:31 AM DIVISION CHIEF EXAM DESCRIPTION: US RUQ REASON FOR STUDY: [...] AM T: ??07/28/2024 8:31 AM Report ID: [id number] Reading Location: ??[id number] Procedure Note Jovi Melton MD - 07/28/2024 [...] by Jovi Melton M.D. JR: Report ID: [id number] Reading Location: [id number] Delgado Goodrich MD IM US PROCEDURES Final Re sult * eGFR (07/15/2024 8:39 AM DIVISION CHIEF) eGFR 89 >=60 mL/min/1. 73 m2 Comment: [...] was last reviewed 2021. Testing performed by: [address] [address] Blood 07/15/2024 8:39 AM DIVISION CHIEF 07/15/2024 1:06 PM DIVISION CHIEF Delgado Goodrich MD LAB BLOOD ORDERABLES Final Result [facility] [address] Department [place] [address] * Renal function panel (07/15/2024 8:39 AM DIVISION CHIEF) Sodium 139 135 - 145 mmol/L Comment:Testing performed by : [address] [address] Potassium, pl 4.2 3.3 - 4.9 mmol/L AMADO CARTAGENA Comment:Testing performed by : [facility], [address] [place] [address]., [address] Chloride 101 97 - 110 mmol/L CERNER CH Comment:Testing performed by : [facility], [address] [place] [address]., [address] CO2 26 22 - 32 mmol/L CERNER CH Comment:Testing performed by : [address] [address] Anion gap 12 2 - 15 mmol/L CERNER CH Comment:Testing performed by : [address], [address] BUN 17 6 - 25 mg/dL CERNER CH Comment:Testing performed by : [facility], [address] [place] [address], [address] Creatinine 0.75 0.60 - 1.10 mg/dL CERNER CH Comment:Testing performed by : [address], [address] Glucose 94 70 - 199 mg/dL CERNER CH Comment: Interpretive Data Fasting glucose >/= 126 [...] classification and Diagnosis of Diabetes Diabetes Care 202; 46: S19-S40. Current interpretive data was last revised 2022. Testing performed by: [address] [address] Calcium 9.4 8.5 - 10.3 mg/dL CERNER CH Comment:Testing performed by : [address] [address] Phosphorus, pl 3.1 2.3 - 4.5 mg/dL CERNER CH Comment:Testing performed by : [address] [address] Albumin 4.2 3.5 - 5.0 g/dL CERNER CH Comment:Testing performed by : [address] [address] Blood 07/15/2024 8:39 AM DIVISION CHIEF 07/15/2024 12:55 PM DIVISION CHIEF us Delgado Goodrich MD LAB BLOOD ORDERABLES Final Result [facility] [id number] [place] [address] [place] [address] * (ABNORMAL) Lipid panel (07/15/2024 8:39 AM DIVISION CHIEF) Cholesterol 204(H) 30 - 199 mg/dL Comment: [...] last revised on 2018. Testing performed by: [facility], [address] [place] [address]., [address] Triglycerides 218(H) <=149 mg/dL AM[facility]O CARTAGENA Comment: [...] last revised on 2018. Testing performed by: [facility], [address] [place] [address]., [address] HDL 43 >=40 mg/dL AM[facility] Comment: Interpretive [...] last revised on 2018. Testing performed by: [facility], [address] [place] [address]., [address] LDL, calculated 123 <=129 mg/dL AMADO Comment: Interpretive Data Ages < or = 19 years ??Acceptable: ? <110 mg/dL ??Borderline high: ??110-129 mg/dL ??High: ?>or= 130 mg/dL Ages > or = 20 years ??Optimal: ? <100 mg/dL ??Near optimal: ?100-129 mg/dL ??Borderline high: ?? 130-159 mg/dL ??High: ?>160 mg/dL Calculated using the Wing LDL-C estimating equation. This equation was implemented on 2024. Prior to this date LDL-C was estimated using the Friedewald equation. Literature References: 1. Expert Panel on Integrated Guidelines for Cardiovascular Health and Risk Reduction in Children and Adolescents. Pediatrics 2011;128:S213 2. NCEP Expert Panel. Circulation 2004;110:227 3. Wing M et al. JOSE RAFAEL Cardiol. 2020 December 11;5(5):540-548. doi: 10.1001/jamacardio.2020.0013 Current Interpretive Data was last revised on 2024. Testing performed by: [facility], [address] [place] [address]., [address] Non-HDL Cholesterol 161 mg/dL AM[facility]O CARTAGENA Comment: Interpretive Data Ages [...] last revised on 2018. Testing performed by: [facility], [address] [place] [address]., [address] Chol/HDL ratio 5 [facility] Comment:Testing performed by : [address] [address] Blood 07/15/2024 8:39 AM DIVISION CHIEF 07/15/2024 12:55 PM DIVISION CHIEF Delgado Goodrich MD LAB BLOOD ORDERABLES Final Result [facility] [id number] [place] [address] Department [place] [address] * Screening Mammogram Right W Ebenezer Unilateral Only (09/24/2023 10:31 AM DIVISION CHIEF) Anatomical Region Laterality Modality Breast Right Mammography Narrative 09/24/2023 12:54 PM DIVISION CHIEF Mammogram Technique: Right Breast Digital Breast Tomosynthesis, Unilateral C-view 2D Screening mammogram. ??Views obtained: ??right craniocaudal and right mediolateral oblique. ??Computer Aided Detection was performed. Mammogram Findings: The present examination has been compared to prior imaging studies performed at [facility] on 04/27/2021, 05/17/2021 and 09/18/2022. There are [...] compared to prior imaging studies performed at [facility] on 04/27/2021, 05/17/2021 and 09/18/2022. There are scattered areas of fibroglandular density. There is no suspicious abnormality in the right breast. Patient status post contralateral mastectomy for personal history ofbreast cancer. Impression: There is no mammographic evidence of malignancy. Annual screening mammography is recommended. OVERALL FINAL ASSESSMENT: BI-RADS CATEGORY 1: Negative. Nickie Hinkle NP IMG MAMMO PROCEDURES Fin al Result * Hepatitis C antibody (05/02/2019 10:45 AM CDT) Hep C Ab Negative Negative [facility] KEITH (ANAYELI) Comment:Testing performed by : [facility], [address] [place] [address], [place]., [address] Blood specimen (specimen) 05/02/2019 10:45 AM CDT 05/02/2019 1:36 PM CDT Narrative [facility]O KEITH (ANAYELI) - 05/02/2019 2:42 PM CDT Today (05-02-19). us Delgado Goodrich MD LAB MICROBIOLOGY - GENERAL ORDERABLES Final Result [facility] KEITH ([place]) [address] [place] [address] * COLONOSCOPY (02/03/2019 10:06 AM CDT) Anatomical Region Laterality Modality Other Narrative Procedure Note Shay Bryan MD PhD - 02/03/2019 10:06 AM CDT ENDOSCOPY LAB Patient Name: Hilaria Russo Procedure Date: 02/03/2019 10:06 AM Date of : 1960 Admit Type: Outpatient Age: 58 Gender: Female Attending MD: Shay Bryan MD,PHD Room: [facility] 02 Note Status: Finalized Procedure: Colonoscopy Indications: Screening [...] Thescope was passed under direct vision. The [id number] introduced through the anus and advanced to theterminal ileum. The colonoscopy was performed withoutdifficulty. The patient tolerated the procedure well. The qualityof the bowel preparation was good. The quality of thebowel preparation was evaluated using the BBPS ([place] Bowel Preparation Scale) with scores of: Right [...] 0 Note Initiated On: 02/03/2019 10:06 AM us Shay Bryan MD PhD ENDOSCOPY PROCEDURES Allison l Result from Last 3 Months or Most Recently Relevant to Health Maintenance Insurance [facility] CHOICE PLUS Advance Directives For more information, please contact: [phone] * Full Code (Latest Code Status on File) Date Activated Date Inactivated Comments 02/03/2019 9:12 AM 02/03/2019 3:27 PM Care Teams Retail And Restaurant Associate Relationship Specialty Start Date End Date Delgado Goodrich MD PCP - General Internal Medicine 05/12/19 Dennys Eller MD Referring Physician Obstetrics and Gynecology 01/02/20 [place] [address] [place] [id number] Surgeon Surgical Oncology 01/02/20
[2024-09-10 01:34] LABS: Vitamin D 25 Hydroxy 69 ng/mL (30-100)
== END 2024-09-08 11:30 | disposition home or self-care (01) ==
LOC: CHSLAB 11:34
PROVIDERS: PCP Internal Medicine; Visit Provider Nurse Practitioner
DX: E55.9 Vitamin D deficiency, unspecified (principal)
CPT/HCPCS: 36415; 82306